=== PATIENT | female | born 1980 | race Caucasian/White ===

== ENCOUNTER 2024-12-05 13:50 | Emergency (ER) | payer MEDICAID, SELFPAY ==
--- NOTE | 2024-12-05 14:10 | PD.EDNECK ---
ED Neck Injury Pain RME/HPI General Chief Complaint: Neck Pain/Injury Stated Complaint: Neck pain, popping X 1 week Time Seen by Provider: 12/05/24 14:00 Arrival date/time: 12/05/24 13:50 44 year old female with pmhx of neck fracture, DM, present to emergency room with c/o of neck pain for 1 week. pt report accidentally hitting her head on the side of door before sx appearing. LOCATION: Neck SEVERITY: Symptoms are described as being severe with limitations on activities of daily living CONTEXT: The patient is unable to identify any inciting events. DURATION/TIMING: The symptoms started approximately 7 days ago and have been constant since and have been progressive getting worse. ASSOCIATED SYMPTOMS: The patient is unable to identify any other associated symptoms. MODIFYING FACTORS: The patient is unable to identify any alleviating or aggravating symptoms. PERTINENT ROS: no fevers, no pleuritic pain, no chest pain/shortness of breath no nausea,vomiting, diarrhea, no dizziness/headache no rash no loc/syncope episode no visual changes REVIEW OF SYSTEMS: See History of Present Illness - with the exception of those mentioned in the history of present illness, all other systems reviewed and reported as negative GENERAL: In general the patient is awake, interactive, in an emergency department gurney. HEAD/EYES/EARS/NOSE/THROAT: normo-cephalic, atraumatic, mucus membranes are moist, anicteric, palpebral conjunctiva is pink, trachea is midline. CARDIOVASCULAR: regular rate and regular rhythm, no murmurs, heart sounds are not distant, strong pulses in all four extremities that are equal and symmetric bilateral upper and lower extremities, normal capillary refill. CHEST/PULMONARY: normal chest rise and fall, good air movement, clear to auscultation bilaterally, normal inspiratory to expiratory ratios without evidence of respiratory distress. NECK: + left paraspinal tenderness, no step off, No midline tenderness, no step off ROM/Strenght intact No Kernig and bruzinski sign. No trauma NEUROLOGICAL: cranio-facial features are symmetric, moves all four extremities equally without obvious limitations or weakness. EXTREMITY: no tenderness to palpation over the long bones or large joints of the bilateral upper and lower extremities, no joint swelling, no joint erythema, no signs of trauma, no unilateral leg swelling and no peripheral edema. SKIN: warm, dry, well-perfused, no jaundice, no rash, no telangiectasias or petechia. PSYCH: calm, cooperative, no evidence of psychosis or agitation Related Data Home Medications ?Medication ?Instructions ?Recorded ?Confirmed glipizide 5 mg tablet, extended 5 mg PO QDAY 10/08/19 10/08/19 release 24 hr sitagliptin phosphate 25 mg tablet 25 mg PO QDAY 10/08/19 10/08/19 (Januvia) Previous Rx's ?Medication ?Instructions ?Recorded glipizide 5 mg tablet 5 mg PO QDAY #30 tabs 10/09/19 sitagliptin phosphate 25 mg tablet 25 mg PO QDAY #30 tabs 10/09/19 (Januvia) etodolac 400 mg tablet 400 mg PO BID PRN pain #30 tabs 09/20/20 methocarbamol 750 mg tablet 750 mg PO TID PRN pain #30 tabs 09/20/20 (Robaxin-750) sulfamethoxazole 800 1 tab PO BID #20 tabs 10/05/21 mg-trimethoprim 160 mg tablet (Bactrim DS) cyclobenzaprine 10 mg tablet 10 mg PO BID PRN muscle spasm #20 12/05/24 tabs naproxen 500 mg tablet 500 mg PO BID PRN pain #30 tabs 12/05/24 Allergies Allergy/AdvReac Type Severity Reaction Status Date / Time adhesive Allergy Intermediate RASH Verified 04/25/24 12:13 Course Course Course Narrative: Patient presenting with neck pain for 7 days? following a traumatic event ( hitting head on door) .? Cervical spine CT was obtained revealing no acute findings.? Toradol 30mg IM and flexeril 10mg for pain control? Advised patient on cold application to the affected area for 20-30 minutes every few hours for 1-2 days and then the warm application to the affected area for 20-30 minutes every few hours until resolution of symptoms. (do not sleep on the heating pad). Use over the counter pain medication. Cyclobenzaprine (Flexiril) 10mg orally at night for muscle relaxation; do not drive or operate machinery when on this medication as it may cause drowsiness. Patient is aware that further imaging such as MRI and/or orthopedic referral may be required. Follow-up with primary care in 3-7 days if neck pain persists to consider further evaluation. Go to ER if progressive symptoms, including worsening pain not controlled by medications, numbness, lower extremity weakness, urinary or fecal retention or incontinence, saddle anesthesia or unintended weight loss, significant fevers, or other concerns.? At this time, however, he is stable for discharge. Quality Measures none Orders Category Date Time Status CT cervical spine wo con Stat Exams 12/05/24 14:11 Completed CYCLObenzaPRINE [Flexeril] Med 12/05/24 14:10 Discontinued 5 mg PO X1 ONE Ketorolac Inj [Toradol Inj] Med 12/05/24 14:10 Discontinued 30 mg IM X1 ONE Vital Signs Vital signs: Vital Signs Temperature 98.2 F 12/05/24 14:11 Pulse Rate 79 12/05/24 14:11 Respiratory Rate 16 12/05/24 14:11 Blood Pressure 150/89 H 12/05/24 14:11 Pulse Oximetry (%) 98 12/05/24 14:11 Oxygen Delivery Method Room Air 12/05/24 14:11 Neck Pain Patient data External records reviewed:: [facility] previous records Clinical information provided by:: none Social determinants that could affect healthcare access:: none Patient has the following chronic illnesses:: neck fx How is presenting disease/condition affected by chronic disease/condition?: exacerbated by Evaluation data The following diagnostics were reviewed and interpreted by me:: radiology exam(s) Lab and/or radiology exams considered but not ordered:: none Interpretation Summary: CT: Axial sections demonstrate intact base of the skull. Reversal normal cervical lordosis C1 exhibit satisfactory relationship to the odontoid. No acute cervical vertebral body fracture seen. Alignment posterior spinous processes satisfactory. C4-C5 moderate right neural foraminal stenosis Impression: No acute cervical fracture. As clinically warranted, MRI cervical spine without contrast follow-up would best assess full extent of acquired soft tissue spinal stenosis Medications / Prescriptions Medications or Prescriptions considered but not ordered:: none Medication administrations:: Medication Administration History Discontinued Medications Cyclobenzaprine HCl (Cyclobenzaprine 5 Mg Tablet) 5 mg PO X1 ONE Stop: 12/05/24 14:11 Last Admin: 12/05/24 14:16 Dose: 5 mg Documented By: OA Ketorolac Tromethamine (Ketorolac Inj 60 Mg/2 Ml Vial) 30 mg IM X1 ONE Stop: 12/05/24 14:11 Last Admin: 12/05/24 14:16 Dose: 30 mg Documented By: OA as stated above Consultations Consultation(s) initiated? (list below): No Diagnosis Neck Differential Diagnosis: disc disorder of cervical region, whiplash injury to neck, closed subluxation of cervical spine, fracture of cervical spine without lesion of spinal cord, cervical radiculopathy, torticollis and strain of neck muscle Most likely diagnosis given after review of the tests above:: neck strain Admission Indicated Admission indicated?: not indicated Admission Request Was there a request for admission?: No Disposition Plan Disposition Plan: Discharge Discharge Attestation Discharge Attestation: The patient and all family members were given an opportunity to ask questions and understood the discharge instructions. Discharge instructions specifically effects, indications for sooner follow up or return to the emergency department, and the expected course of current diagnosis. Patient condition: Stable Discharge Plan Plan Patient Disposition: HOME (Self Care) Health Concerns: Follow with PMD as directed Take tylenolb as need Return to ED if sx worsen Prescriptions/Referrals Prescriptions/Med Rec: New cyclobenzaprine 10 mg tablet 10 mg PO BID PRN (Reason: muscle spasm) Qty: 20 0RF naproxen 500 mg tablet 500 mg PO BID PRN (Reason: pain) Qty: 30 0RF No Action sulfamethoxazole-trimethoprim [Bactrim DS] 800-160 mg tablet 1 tab PO BID Qty: 20 0RF glipizide 5 mg Tablet Extended Release 24hr 5 mg PO QDAY Januvia 25 mg Tablet 25 mg PO QDAY glipizide 5 mg tablet 5 mg PO QDAY Qty: 30 0RF Januvia 25 mg tablet 25 mg PO QDAY Qty: 30 0RF methocarbamol [Robaxin-750] 750 mg tablet 750 mg PO TID PRN (Reason: pain) Qty: 30 0RF etodolac 400 mg tablet 400 mg PO BID PRN (Reason: pain) Qty: 30 0RF Referrals: Veda Hathaway PA-C [Primary Care Provider] - In 1 week Problem List Clinical Impression: Strain of neck muscle Patient/Caregiver Discharge Instructions Education Materials: ED Neck Sprain or Strain Print Language: [place] Stand Alone Forms: Ruth Award Info., Patient Portal Info Letter
[2024-12-05 14:11] VITALS: BP 150/89; PULSE 79; RESP 16; TEMP 36.8; O2SAT 98; BMI 27.9
--- NOTE | 2024-12-05 14:11 | XR_ITS ---
Examination: CT cervical spine without contrast 2-D sagittal reconstructions 2-D coronal reconstructions 3-D reconstructions. Exam date and time:December 05, 2024 1452 hours INDICATIONS: History cervical spine fracture 2006 CTDI:vol (mGy) 13.2 DLP: (mGycm) 279 Technique: Multiple 2 mm axial sections of the cervical spine have been obtained. The coronal and sagittal reconstructions have been obtained. 3-D reconstructions have been obtained. Low dose protocols were performed. One or more of the following dose reduction techniques were used; automated exposure control, adjustment of the mA and/or KV according to patient size, use of iterative reconstruction technique. Findings: Axial sections demonstrate intact base of the skull. Reversal normal cervical lordosis C1 exhibit satisfactory relationship to the odontoid. No acute cervical vertebral body fracture seen. Alignment posterior spinous processes satisfactory. C4-C5 moderate right neural foraminal stenosis Impression: No acute cervical fracture. As clinically warranted, MRI cervical spine without contrast follow-up would best assess full extent of acquired soft tissue spinal stenosis
[2024-12-05] MEDS: CYCLObenzaPRINE 5 MG TABLET PO (14:16)
[2024-12-05] MEDS: KETOROLAC INJ 60 MG/2 ML VIAL 30 MG IM (14:16)
== END 2024-12-05 16:04 | disposition home or self-care (01) ==
PROVIDERS: Emergency Provider Emergency Medicine; PCP Physician Assistant Medical
DX: S16.1XXA Strain of muscle, fascia and tendon at neck level, initial encounter (principal); W22.09XA Striking against other stationary object, initial encounter; E11.9 Type 2 diabetes mellitus without complications
CPT/HCPCS: 72125; 96372; 99284; J1885; A9270

== ENCOUNTER 2025-06-08 20:32 | Emergency (ER) | payer MEDICAID, SELFPAY ==
[2025-06-08 20:33] VITALS: BMI 26.6
[2025-06-08 21:29] VITALS: BP 131/81; PULSE 92; RESP 18; TEMP 36.8; O2SAT 98
--- NOTE | 2025-06-08 22:01 | PD.EDALLER ---
ED Allergic Reaction RME/HPI General Chief complaint: Skin/Abscess/Foreign Body Stated complaint: RASH TO WHOLE BODY X 3 DAYS Time Seen by Provider: 06/08/25 21:40 Arrival date/time: 06/08/25 20:32 45F with history of DM presents to ED with several days generalized itchy rash, likely from poison ciaran. Limitations: no limitations Related Data Home Medications ?Medication ?Instructions ?Recorded ?Confirmed glipizide 5 mg tablet, extended 5 mg PO QDAY 10/08/19 10/08/19 release 24 hr sitagliptin phosphate 25 mg tablet 25 mg PO QDAY 10/08/19 10/08/19 (Januvia) Previous Rx's ?Medication ?Instructions ?Recorded glipizide 5 mg tablet 5 mg PO QDAY #30 tabs 10/09/19 sitagliptin phosphate 25 mg tablet 25 mg PO QDAY #30 tabs 10/09/19 (Januvia) etodolac 400 mg tablet 400 mg PO BID PRN pain #30 tabs 09/20/20 methocarbamol 750 mg tablet 750 mg PO TID PRN pain #30 tabs 09/20/20 (Robaxin-750) sulfamethoxazole 800 1 tab PO BID #20 tabs 10/05/21 mg-trimethoprim 160 mg tablet (Bactrim DS) cyclobenzaprine 10 mg tablet 10 mg PO BID PRN muscle spasm #20 12/05/24 tabs naproxen 500 mg tablet 500 mg PO BID PRN pain #30 tabs 12/05/24 prednisone 20 mg tablet 20 mg PO BID 5 days #10 tabs 06/08/25 triamcinolone acetonide 0.1 % 1 applic topical QDAY #30 grams 06/08/25 topical cream Allergies Allergy/AdvReac Type Severity Reaction Status Date / Time adhesive Allergy Intermediate RASH Verified 06/08/25 20:32 Review of Systems Review of Systems Systems Reviewed: All systems reviewed, normal except as documented Constitutional Constitutional: Reports system reviewed and no additional complaints, except as documented, Denies fever(s) and Denies headache(s) ENT Ears, Nose, Mouth, and Throat: Denies disequilibrium and Denies headache(s) Cardiovascular Cardiovascular: Reports system reviewed and no additional complaints, except as documented, Denies chest pain and Denies dyspnea Respiratory Respiratory: Reports system reviewed and no additional complaints, except as documented, Denies cough and Denies dyspnea Gastrointestinal Gastrointestinal: Reports system reviewed and no additional complaints, except as documented, Denies abdominal pain, Denies nausea and Denies vomiting Integumentary/Breasts Skin/Breast: Reports as per HPI, Reports pruritus and Reports rash Neurologic Neurologic: Reports system reviewed and no additional complaints, except as documented, Denies confusion, Denies disequilibrium and Denies headache(s) Psychiatric Psychiatric: Denies confusion Past Medical History Past Medical History CARDIAC: Negative Congestive Heart Failure RESPIRATORY: Negative Chronic Obstructive Pulmonary Disease (COPD) GENITOURINARY: Negative Renal Disease ENDOCRINE: Positive Endocrine Disorders and Diabetes Mellitus Type 2; Negative Diabetes Mellitus Type 1 Social History SMOKING STATUS: Current every day smoker ED Exam General Limitations: Present no limitations General appearance: Present alert and in no apparent distress Head Head exam: Present atraumatic Eye Eye exam: Present normal appearance, PERRL and EOMI ENT ENT exam: Present normal exam, normal oropharynx and mucous membranes moist Neck Neck exam: Present normal inspection, full ROM and trachea midline Chest Chest inspection: Present normal inspection and symmetric chest wall rise Respiratory Respiratory exam: Present normal lung sounds bilaterally Cardiovascular Cardiovascular exam: Present regular rate, normal rhythm and normal heart sounds Abdominal Exam Abdominal exam: Present soft and normal bowel sounds Extremities Exam Extremities exam: Present normal inspection and full ROM Back Exam Back exam: Present normal inspection and full ROM Neurological Exam Neurological exam: Present alert, oriented X3 and CN II-XII intact Psychiatric Psychiatric exam: Present normal affect and normal mood Skin Skin exam: Present warm, dry, intact, normal color and rash Course Quality Measures none Orders Category Date Time Status predniSONE Med 06/08/25 21:41 Discontinued 60 mg PO X1 ONE Vital Signs Vital signs: Vital Signs Temperature 98.3 F 06/08/25 21:29 Pulse Rate 92 06/08/25 21:29 Respiratory Rate 18 06/08/25 21:29 Blood Pressure 131/81 H 06/08/25 21:29 Pulse Oximetry (%) 98 06/08/25 21:29 Oxygen Delivery Method Room Air 06/08/25 21:29 O2 at 98% on RA and WNLs Allergic Reaction MDM Narrative MDM Narrative:: 45F with history of DM presents to ED with several days generalized itchy rash, likely from poison ciaran. Physical exam reveals generalized rash, more likely contact dermatitis rather than urticarial. Patient is afebrile, alert, but uncomfortable. Meds and certified alcohol and drug counselor given. Patient data External records reviewed:: [facility] previous records Clinical information provided by:: patient Social determinants that could affect healthcare access:: none Patient has the following chronic illnesses:: DM How is presenting disease/condition affected by chronic disease/condition?: exacerbated by Evaluation data The following diagnostics were reviewed and interpreted by me:: other (specify) (none) Lab and/or radiology exams considered but not ordered:: not ordered Interpretation Summary: n/a Medications / Prescriptions Medications or Prescriptions considered but not ordered:: ordered Medication administrations:: Medication Administration History Discontinued Medications Prednisone (Prednisone 20 Mg Tablet) 60 mg PO X1 ONE Stop: 06/08/25 21:42 Last Admin: 06/08/25 21:47 Dose: 60 mg Documented By: OA above Consultations Consultation(s) initiated? (list below): No Diagnosis Differential Diagnosis allergic reaction: anaphylaxis, allergic reaction, angioedema, contact dermatitis, adverse reaction to drug, viral enanthem and urticaria Most likely diagnosis given after review of the tests above:: contact dermatitis Admission Indicated Admission indicated?: not indicated Admission Request Was there a request for admission?: No Disposition Plan Disposition Plan: Discharge Discharge Attestation Discharge Attestation: The patient and all family members were given an opportunity to ask questions and understood the discharge instructions. Discharge instructions specifically effects, indications for sooner follow up or return to the emergency department, and the expected course of current diagnosis. Patient condition: Stable Discharge Plan Plan Patient Disposition: HOME (Self Care) Discharge Disposition comment: Stable Prescriptions/Referrals Prescriptions/Med Rec: New prednisone 20 mg tablet 20 mg PO BID 5 Days Qty: 10 0RF triamcinolone acetonide 0.1 % cream 1 applic topical QDAY Qty: 30 0RF No Action sulfamethoxazole-trimethoprim [Bactrim DS] 800-160 mg tablet 1 tab PO BID Qty: 20 0RF glipizide 5 mg Tablet Extended Release 24hr 5 mg PO QDAY Januvia 25 mg Tablet 25 mg PO QDAY glipizide 5 mg tablet 5 mg PO QDAY Qty: 30 0RF Januvia 25 mg tablet 25 mg PO QDAY Qty: 30 0RF methocarbamol [Robaxin-750] 750 mg tablet 750 mg PO TID PRN (Reason: pain) Qty: 30 0RF etodolac 400 mg tablet 400 mg PO BID PRN (Reason: pain) Qty: 30 0RF cyclobenzaprine 10 mg tablet 10 mg PO BID PRN (Reason: muscle spasm) Qty: 20 0RF naproxen 500 mg tablet 500 mg PO BID PRN (Reason: pain) Qty: 30 0RF Problem List Clinical Impression: Contact dermatitis Patient/Caregiver Discharge Instructions Education Materials: ED Contact Dermatitis Additional Instructions: Please follow-up with PCP within 24-48 hours and return immediately if symptoms worsen. Do not use cream on face or skin folds. Do not use cream >2 weeks in a row. Stay out of the sun and avoid scratching. Oral steroids will increase your blood sugar, so keep an eye on it. See dermatology if problem persists. Print Language: Slovenian Stand Alone Forms: Patient Portal Info Letter THOMPSON/LARRY Supervising Physician THOMPSON/LARRY Supervising Physician: Dr. Merino
== END 2025-06-08 22:08 | disposition home or self-care (01) ==
PROVIDERS: Emergency Provider Emergency Medicine; PCP Family Medicine
DX: L25.9 Unspecified contact dermatitis, unspecified cause (principal)
CPT/HCPCS: 99283; J7512